=== PATIENT | female | born 1945 ===

== ENCOUNTER 2017-05-27 15:30 | Emergency (ER) | payer OTHER ==
--- NOTE | 2017-05-27 16:50 | UC ---
Neck Pain HPI - HPI Summary HPI Summary: 72 year old female presents with complains of rash om her left cheek. - History of Current Complaint Chief Complaint: UCGeneralIllness Stated Complaint: NECK COMPLAINT Time Seen by Provider: 05/27/17 16:43 Hx Obtained From: Patient Onset/Duration Of Injury/Symptoms: Hours Onset/Duration: Lasting Days Severity: Moderate Pain Scale Used: 0-10 Numeric - 8 - Allergies/Home Medications Allergies/Adverse Reactions: Allergies Allergy/AdvReac Type Severity Reaction Status Date / Time Penicillins Allergy Hives Verified 05/27/17 16:37 Pregabalin [From Lyrica] Allergy Edema Verified 05/27/17 16:37 Home Medications: Home Medications Cholecalciferol TAB* [Vitamin D TAB*] 1,000 unit PO DAILY 05/27/17 [History Confirmed 05/27/17] Cyanocobalamin TAB* [Vitamin B12 TAB*] 500 mcg PO DAILY 05/27/17 [History Confirmed 05/27/17] DULoxetine DR CAP* [Cymbalta CAP*] 20 mg PO BID 05/27/17 [History Confirmed ] Gabapentin CAP(*) [Neurontin 300 CAP(*)] 300 mg PO TID 05/27/17 [History Confirmed 05/27/17] Losartan TAB* [Cozaar TAB*] 25 mg PO DAILY 05/27/17 [History Confirmed 05/27/17] Metoprolol Tartrate TAB* [Lopressor TAB*] 25 mg PO DAILY 05/27/17 [History Confirmed 05/27/17] PMH/Surg Hx/FS Hx/Imm Hx Previously Healthy: Yes - Surgical History Surgical History: Yes Surgery Procedure, Year, and Place: gallbladder. tubal ligation. tonsillectomy - Social History Alcohol Use: Daily Substance Use Type: None Smoking Status (MU): Never Smoked Tobacco Review Of Systems Constitutional: Positive: Negative Skin: Positive: Rash ENT: Positive: Negative Respiratory: Positive: Negative Cardiovascular: Positive: Negative Gastrointestinal: Positive: Negative Musculoskeletal: Positive: Negative Neurological: Positive: Negative Psychological: Positive: Negative All Other Systems Reviewed And Are Negative: Yes Physical Exam Triage Information Reviewed: Yes Vital Signs: Initial Vital Signs Temp 36.8 C 05/27/17 16:28 Pulse 79 05/27/17 16:28 Resp 18 05/27/17 16:28 BP 149/76 05/27/17 16:28 Pulse Ox 100 05/27/17 16:28 Vital Signs Reviewed: Yes Eye Exam: Normal ENT Exam: Normal Dental Exam: Normal Neck exam: Normal Neck: Positive: 1 Respiratory Exam: Normal Cardiovascular Exam: Normal Abdominal Exam: Normal Musculoskeletal Exam: Normal Neurological Exam: Normal Psychological Exam: Normal Skin: Positive: rashes - rash on left cheek Neck Pain Course/Dx - Differential Dx/Diagnosis Provider Diagnoses: rash left cheek Discharge - Discharge Plan Condition: Stable Disposition: HOME Prescriptions: Acyclovir [Zovirax 800 MG] 800 mg PO .FID #1 tab Capsaicin 0.025% CREAM* [Zostrix 0.025% CREAM*] 1 applic TOPICAL BID #1 tu predniSONE TAB* [Deltasone TAB*] 40 mg PO DAILY #10 tab Patient Education Materials: Shingles (ED), Acute Rash (ED) Referrals: Vale Grimes [Medical Doctor] -
[2017-05-27 17:11] VITALS: BP 149/76
--- OUTSIDE RECORDS SUMMARY | 2017-05-27 17:14 | XMS REPORT | Continuity of Care Document ---
:1945 Author Organization [facility] Address [address] [place] [address] Care Team Providers Name Role Phone Unavailable Primary Care Physician Unavailable Insurance Providers Payer Name Policy Number Subscriber Name Relationship MC-PT A [id number] [employer] OTHER [id number] [employer] Advance Directives Directive Response Recorded Date/Time Advance Directive? N 05/27/17 10:28am Living Will? N 05/27/17 10:28am Health Care Proxy? N 05/27/17 10:28am Is the patient an Organ Donor? N 03/14/17 2:07pm Chief Complaint and Reason for Visit Reason for Visit ABDOMINAL PAIN,FEVER,DIARRHEA,NAUSEA Problems Active Medical Problems Problem Onset Date Recorded Date Status Urinary tract infection Unknown 03/14/17 Active Abdominal pain Unknown 03/14/17 Active Medications Current Home Medications Medication Dose Units Route Directions Days/Qty Instructions Start Date CIPROFLOXACIN HCL 500 MG ORAL EVERY 12 HOURS 10 03/14/17 (CIPRO *) 500 MG TABLET Social History Query Response Start Date Stop Date Smoking Status Former smoker Hospital Discharge Instructions No hospital discharge instructions. Plan of Care Discharge Date 03/14/17 Disposition Routine Discharge Home Condition at Discharge STABLE Instructions/Education Provided Urinary Tract Infection in Women (ED) Prescriptions See Medications Section Referrals CHIO BAKER MD - *P Gastroenterology - Reason(s) for Referral: Notes: Dr. Pietro Pulido Additional Instructions/Education You need to make an appointment to follow- up with the following health care provider or your regular doctor within 3 days. Please make your appointment to see your health care provider as soon as possible. Please return immediately if your symptoms worsen, or you cannot get a follow-up appointment. Functional Status Query Response Date Recorded Do you get in and out of a chair: Independently March 14, 2017 11:30am Do you bathe/dress: Independently March 14, 2017 11:30am Living situation: Home with family March 14, 2017 11:30am Allergies, Adverse Reactions, Alerts Allergen Type Severity Reaction Status Last Updated Penicillins Allergy Intermediate UNKNOWN Active 03/14/17 pregabalin Allergy Intermediate UNKNOWN Active 03/14/17 Immunizations No Known History of Immunizations. Vital Signs Vital Reading Collection Date/Time Result Blood Pressure 05/27/17 2:00pm 144/132 Temperature 03/14/17 3:45pm 97.5 F Temperature Source 03/14/17 3:45pm Temporal Respiratory Rate 05/27/17 2:00pm 7 Pulse Rate 05/27/17 2:00pm 80 Bedside Pulse Oximetry 05/27/17 1:44pm 98 Weight 03/14/17 11:08am 165 lb Weight 03/14/17 11:08am 74.844 kg Results Laboratory Results Test Name Result Units Flags Reference Collection Result Comments Date/Time Date/Time Glucose 93 mg/dL 74-106 04/04/17 04/04/17 Screen 1:05pm 2:42pm Blood Urea 12 mg/dL -04/04/17 04/04/17 Nitrogen 1:05pm 2:42pm Creatinine 0.8 mg/dL 0.6-1.3 04/04/17 04/04/17 1:05pm 2:42pm Estimated >60 mL/min >60 04/04/17 04/04/17 GFR 1:05pm 2:42pm (Non- Estimated >60 mL/min >60 04/04/17 04/04/17 Note: GFR ( 1:05pm 2:42pm Persistent reduction for 3 months or more in an eGFR <60 [place]) mL/min/1.73 m2 defines CKD. Patients with eGFR values & gt;/=60 mL/min/1.73 m2 may also have CKD if evidence of persistent proteinuria is present. The original MDRD equation for estimated GFR is not valid for patients less than 18 years of age. Additional information may be found at www.kdoqi.org. BUN/Creatini 15.0 ratio 04/04/17 04/04/17 ne Ratio 1:05pm 2:42pm Sodium Level 143 mmol/L 136-145 04/04/17 04/04/17 1:05pm 2:42pm Potassium 3.8 mmol/L 3.5-5.1 04/04/17 04/04/17 Level 1:05pm 2:42pm Chloride 107 mmol/L 98-107 04/04/17 04/04/17 Level 1:05pm 2:42pm Carbon 28 mmol/L 21-32 04/04/17 04/04/17 Dioxide 1:05pm 2:42pm Level Anion Gap 8 mEq/L 8-16 04/04/17 04/04/17 1:05pm 2:42pm Calcium 8.7 mg/dL 8.5-10.1 04/04/17 04/04/17 Level 1:05pm 2:42pm Total 6.6 g/dL 6.4-8.2 04/04/17 04/04/17 Protein 1:05pm 2:42pm Albumin 3.3 g/dL L 3.4-5.0 04/04/17 04/04/17 1:05pm 2:42pm Globulin 3.3 g/dL 1.9-4.3 04/04/17 04/04/17 1:05pm 2:42pm Albumin/Glob 1.0 ratio 04/04/17 04/04/17 ulin Ratio 1:05pm 2:42pm Total 0.3 mg/dL 0.2-1.0 04/04/17 04/04/17 Bilirubin 1:05pm 2:42pm Aspartate 19 U/L 15-37 04/04/17 04/04/17 Amino Transf 1:05pm 2:42pm (AST/SGOT) Alanine 37 U/L 12-78 04/04/17 04/04/17 Aminotransfe 1:05pm 2:42pm rase (ALT/SGPT) Alkaline 105 U/L 45-117 04/04/17 04/04/17 Phosphatase 1:05pm 2:42pm Urine Color YELLOW YELLOW 04/03/17 04/04/17 2:07pm 1:32pm Urine CLEAR CLEAR 04/03/17 04/04/17 Clarity 2:07pm 1:32pm Urine NEGATIVE mg/dL NEGATIVE 04/03/17 04/04/17 Glucose (UA) 2:07pm 1:32pm Urine NEGATIVE NEGATIVE 04/03/17 04/04/17 Bilirubin 2:07pm 1:32pm Urine NEGATIVE mg/dL NEGATIVE 04/03/17 04/04/17 Ketones 2:07pm 1:32pm Urine 1.010 1.010-1.03 04/03/17 04/04/17 Specific 0 2:07pm 1:32pm [place] Urine Blood NEGATIVE NEGATIVE 04/03/17 04/04/17 2:07pm 1:32pm Urine pH 5.0 L 6.5-7.5 04/03/17 04/04/17 2:07pm 1:32pm Urine NEGATIVE mg/dL NEGATIVE 04/03/17 04/04/17 Protein 2:07pm 1:32pm Urine 0.2 E.U./d 0.2-1.0 04/03/17 04/04/17 Urobilinogen L 2:07pm 1:32pm Urine NEGATIVE NEGATIVE 04/03/17 04/04/17 Nitrite 2:07pm 1:32pm Urine NEGATIVE NEGATIVE 04/03/17 04/04/17 Leukocyte 2:07pm 1:32pm Esterase Stool 171 ug/g H 0-120 03/20/17 03/28/17 Concentration Interpretation Follow-Up Calprotectin 7:30pm 2:58pm <16 - 50 ug/g Normal None >50 -120 ug/g Borderline Re-evaluate in 4-6 weeks >120 ug/g Abnormal Repeat as clinically indicated Stool 41.70 ug/mL( H 0.00-7.24 03/20/17 03/28/17 Results verified by repeat testing Lactoferrin g) 7:30pm 2:58pm Baseline (normal ) 0.00 - 7.24 (LAB) Elevated >7.24 An elevated result is indicative of the presence of fecal lactoferrin, a marker of intestinal inflammation. A normal result does not exclude the presence of intestinal inflammation. The test can be used as an in vitro diagnostic aid to distinguish patients with active inflammatory bowel disease (IBD) from those with non-inflammatory irritable bowel syndrome (IBS). Performed at: [address] [id number] Anchorman: Poli Bradford MD, Phone: [phone] Immunoglobul 196 mg/dL 87-352 03/19/17 03/26/17 in A 4:23pm 6:11pm Saccharomyce 13 units 0-50 03/19/17 03/26/17 Negative <45 s cerevisiae 4:23pm 6:11pm Equivocal 45 - 50 (Tanja)IgG Positive >50 Chitobioside 29 units 0-90 03/19/17 03/26/17 Negative <80 Carbohydrat 4:23pm 6:11pm Equivocal 80 - 90 (ACCA) IgA Positive >90 Laminaribios 11 units 0-60 03/19/17 03/26/17 Negative <55 la Carbohyd 4:23pm 6:11pm Equivocal 55 - 60 (ALCA) IgG Positive >60 Mannobioside 27 units 0-100 03/19/17 03/26/17 Negative < 90 Carbohydrat 4:23pm 6:11pm Equivocal 90 - 100 (AMCA) IgG Positive > 100 This test was developed and its performance characteristics determined by [facility]. It has not been cleared or approved by the Food and Drug Administration. The FDA has determined that such clearance or approval is not necessary. Atypical Negative Negative 03/19/17 03/26/17 p-ANCA 4:23pm 6:11pm IBD Test Pattern is not 03/19/17 03/26/17 Information suggestive of 4:23pm 6:11pm Inflammatory Bowel Disease Anti-Gliadin 2 units 0-19 03/19/17 03/26/17 Negative 0 - 19 IgG Ab 4:23pm 6:11pm Weak Positive 20 - 30 Deaminated Moderate to Strong Positive >30 Anti-Gliadin 4 units 0-19 03/19/17 03/26/17 Negative 0 - 19 IgA Ab 4:23pm 6:11pm Weak Positive 20 - 30 Deaminated Moderate to Strong Positive >30 Endomysial Negative Negative 03/19/17 03/26/17 IgA Antibody 4:23pm 6:11pm Titer Tissue <2 U/mL 0-3 03/19/17 03/26/17 Negative 0 - 3 Transglutami 4:23pm 6:11pm Weak Positive 4 - 10 nase IgA Ab Positive > 10 Tissue Transglutaminase (tTG) has been identified as the endomysial antigen. Studies have demonstr- ated that endomysial IgA antibodies have over 99% specificity for gluten sensitive enteropathy. Tissue <2 U/mL 0-5 03/19/17 03/26/17 Negative 0 - 5 Transglutami 4:23pm 6:11pm Weak Positive 6 - 9 nase IgG Ab Positive >9 Hepatitis B Negative Negative 03/19/17 03/21/17 Surface 4:23pm 1:23pm Antigen Hepatitis B Non Reactive . 03/19/17 03/21/17 Non Reactive: Inconsistent with immunity, Surface 4:23pm 1:23pm less than 10 mIU/ mL Antibody Reactive: Consistent with immunity, greater than 9.9 mIU/mL Hepatitis B Negative Negative 03/19/17 03/21/17 Performed at: RN - [facility] [place] Core IgM 4:23pm 1:23pm [address] [place] [id number] Antibody Anchorman: Stacie Lewis MD, Phone: [phone] Hepatitis B Negative Negative 03/19/17 03/26/17 Core Total 4:23pm 6:11pm Antibody Varicella-Zo 878 index Immune 03/19/17 03/26/17 Negative <135 ster IgG >165 4:23pm 6:11pm Equivocal 135 - 165 Antibody Positive >165 A positive result generally indicates exposure to the pathogen or administration of specific immunoglobulins, but it is not indication of active infection or stage of disease. TPMT Enzyme 29.2 Unit/m . 03/19/17 03/26/17 INFCE Result Units: Units/ mL RBC Activity, lR 4:23pm 6:11pm Reference Range: Quantitative Normal: 15.1 - 26.4 Heterozygous for low TPMT variant: 6.3 - 15.0 Homozygous for low TPMT variant: <6.3 TPMT The above results can be interpreted as Normal for red 03/19/17 03/26/17 Interpretati blood cell Thiopurine Methyltransferase activity. For 4: 23pm 6:11pm on patients having an intrinsic low level of TPMT, recent RBC transfusion can variably increase their assayed enzymatic activity depending on the amount and circulating half-life of the transfused red blood cells. This test was developed and its performance characteristics determined by [facility]. It has not been cleared or approved by the Food and Drug Administration. This case has been reviewed, approved, interpreted and electronically signed by Len Lo, PhD. TPMT Method Enzymatic Endpoint/Liquid Chromatography - Tandem Mass 04/2503/26/17 Spectrometry (LC-MS/MS) 4:23pm 6:11pm Performed at: [address] [id number] Anchorman: Stacie Lewis MD, Phone: [phone] Performed at: [address] [id number] Anchorman: Poli Bradford MD, Phone: [phone] Performed at: [facility] [address] [place] [id number] Anchorman: Calixto Copeland MD, Phone: [phone] Erythrocyte 37 mm/hr H 0-30 03/19/17 03/19/17 Method: Sedimentatio 4:22pm 5:06pm Sediplast n Rate Modified Westergren Vitamin D 31.4 ng/mL 30.0-100.0 03/19/17 03/21/17 Vitamin D deficiency has been defined by the [place] of 25-Hydroxy 4:22pm 1:29pm Medicine and an Endocrine Society practice guideline as a level of serum 25-OH vitamin D less than 20 ng/mL (1,2). The Endocrine Society went on to further define vitamin D insufficiency as a level between 21 and 29 ng/mL (2). 1. IOM ([place] of Medicine). 2010. Dietary reference intakes for calcium and D. [place]: The National Academies Press. 2. Kwadwo MF, Christine NC, Hayley ALVAREZ, et al. Evaluation, treatment, and prevention of vitamin D deficiency: an Endocrine Society clinical practice guideline. JCEM. 2010; 96(7):1911-30. Performed at: [address] [id number] Anchorman: Stacie Lewis MD, Phone: [phone] C-Reactive 15.5 mg/L H <3.0 03/19/17 03/19/17 Protein, 4:22pm 4:52pm Quantitative TB Test Negative Negative 03/19/17 03/24/17 The specimen received for QuantiFERON testing was incubated (QFT) 4:22pm 2:40pm by the ordering institution. Specific procedures outlined in our Directory of Services and in the package insert for the QuantiFERON Gold (In Tube) test must be followed to enable for proper stimulation of cells for the production of interferon gamma. TB Test To be considered positive a specimen should have a TB Ag 03/24/17 (QFT) minus Nil value greater than or equal to 0.35 IU/mL and in 4: 22pm 2:40pm Positive addition the TB Ag minus Nil value must be greater than or Criteria equal to 25% of the Nil value. There may be insufficient information in these values to differentiate between some negative and some indeterminate test values. TB Test 0.10 IU/mL . 03/19/17 03/24/17 (QFT) 4:22pm 2:40pm Antigen TB Test 0.06 IU/mL . 03/19/17 03/24/17 (QFT) Nil 4:22pm 2:40pm TB Test > 10.00 IU/mL . 03/19/17 03/24/17 (QFT) 4:22pm 2:40pm Mitogen TB Test 0.04 IU/mL . 03/19/17 03/24/17 (QFT) 4:22pm 2:40pm Antigen Minus Nil TB Test The QuantiFERON TB Gold (in Tube) assay is intended for use 04/2503/24/17 (QFT) as an aid in the diagnosis of TB infection. Negative 4:22pm 2: 40pm Interpretati results suggest that there is no TB infection. In patients on with high suspicion of exposure, a negative test should be repeated. A positive test indicates infection with Mycobacterium tuberculosis. Among individuals without tuberculosis infection, a positive test may be due to exposure to M. kansasii, M. szulgai or M. marinum. On the Internet, go to cdc.gov/tb for further details. Performed at: - [facility] [id number] Anchorman: Stacie Lewis MD, Phone: [phone] Lactic Acid 0.8 mMol/L 0.4-1.9 03/14/17 03/14/17 Level 1:51pm 2:37pm White Blood 10.0 K/uL 3.1-10.7 03/14/17 03/14/17 Count 12:22pm 12:31pm Red Blood 4.25 M/uL 3.90-5.40 03/14/17 03/14/17 Count 12:22pm 12:31pm Hemoglobin 13.6 gm/dL 11.6-15.8 03/14/17 03/14/17 12:22pm 12:31pm Hematocrit 39.2 % 36.0-46.1 03/14/17 03/14/17 12:22pm 12:31pm Mean 92.2 fl 80.9-99.0 03/14/17 03/14/17 Corpuscular 12:22pm 12:31pm Volume Mean 32.0 pg 25.9-32.7 03/14/17 03/14/17 Corpuscular 12:22pm 12:31pm Hemoglobin Mean 34.7 g/dL H 30.8-34.3 03/14/17 03/14/17 Corpuscular 12:22pm 12:31pm Hemoglobin Concent Platelet 335 K/uL 150-400 03/14/17 03/14/17 Count 12:22pm 12:31pm Red Cell 41.0 fl 3-47 03/14/17 03/14/17 Distribution 12:22pm 12:31pm Width RDW 12.5 % 11.7-14.4 03/14/17 03/14/17 Coefficient 12:22pm 12:31pm of Variation Mean 10.9 fL 8.9-12.4 03/14/17 03/14/17 Platelet 12:22pm 12:31pm Volume Neutrophils 46.9 % 40.4-72.8 03/14/17 03/14/17 (%) (Auto) 12:22pm 12:31pm Lymphocytes 33.4 % 20.0-42.0 03/14/17 03/14/17 (%) (Auto) 12:22pm 12:31pm Monocytes 11.1 % 4.3-13.2 03/14/17 03/14/17 (%) (Auto) 12:22pm 12:31pm Eosinophils 7.9 % H 0.0-6.6 03/14/17 03/14/17 (%) (Auto) 12:22pm 12:31pm Basophils 0.7 % 0.0-1.1 03/14/17 03/14/17 (%) (Auto) 12:22pm 12:31pm Neutrophils 4.67 K/uL 1.8-7.0 03/14/17 03/14/17 # (Auto) 12:22pm 12:31pm Lymphocytes 3.33 K/uL 1.0-4.0 03/14/17 03/14/17 # (Auto) 12:22pm 12:31pm Monocytes # 1.11 K/uL H 0.3-0.9 03/14/17 03/14/17 (Auto) 12:22pm 12:31pm Eosinophils 0.79 K/uL H 0.0-0.5 03/14/17 03/14/17 # (Auto) 12:22pm 12:31pm Basophils # 0.07 K/uL 0.0-0.1 03/14/17 03/14/17 (Auto) 12:22pm 12:31pm Urine RBC NONE SEEN rbc/hp 0-2 03/14/17 03/14/17 f 12:22pm 12:42pm Urine WBC 20-30 wbc/hp H 0-7 03/14/17 03/14/17 f 12:22pm 12:42pm Urine FEW /lpf NONE SEEN 03/14/17 03/14/17 Epithelial 12:22pm 12:42pm Cells Urine MODERATE H NONE SEEN 03/14/17 03/14/17 Bacteria 12:22pm 12:42pm Lipase 250 U/L 56-289 03/14/17 03/14/17 12:22pm 12:58pm Microbiology Results Procedure Source Result Collection Result Date/Time Date/Time Stool Culture Stool No Enteric Pathogens 03/20/17 7:30pm 03/23/17 3:10pm Isolated Cryptosporidium Stool NEGATIVE FOR 03/20/17 7:30pm 03/21/17 3:06pm Antigen CRYPTOSPORIDIUM SPECIFIC ANTIGEN Giardia Antigen (JOSE JUAN) Stool NEGATIVE FOR GIARDIA 03/20/17 7:30pm 03/22/17 3 :25pm SPECIFIC ANTIGEN. Aerobic Blood Culture Blood, NO GROWTH: FINAL 03/14/17 1:53pm 03/15/17 1: 59pm Venous REPORT Anaerobic Blood Blood, NO GROWTH: FINAL 03/14/17 1:53pm 03/15/17 1:59pm Culture Venous REPORT Urine Culture Urine,Clean Escherichia Coli 03/14/17 12:22pm 03/15/17 Catch 11:34pm Procedures Procedure Status Date Provider(s) LUMBAR SPINE COMPLETE Active 02/27/17 ELAINE JOSHI AP, LAT KNEE WITH [place] Active 02/27/17 ELAINE JOSHI KNEE LIMITED - 1-2 VIEWS Active 02/27/17 ELAINE JOSHI ANKLE COMPLETE - 4 VIEWS Active 03/04/17 ELAINE JOSHI FOOT COMPLETE 4 VIEWS Active 03/04/[address] ABDO & PELV W/O IV CONTRAST Completed 03/14/17 JOSE HUSAIN NP MRI PELVIS W/O CONTRAST Completed 04/29/17 JERRICA HERRERA MD Encounters Encounter Location Arrival/Admit Date Discharge/Depart Date Attending Provider Departed [place] 05/27/17 9:57am 05/27/17 2:18pm NEAL PULIDO MD Surgical Day [facility] Registered [place] 04/29/17 12:34pm JAVIER [facility] Registered [place] 04/04/17 8:02pm JAVIER [facility] Registered [place] 04/04/17 12:55pm SAMUEL [facility] CHIO [facility] Registered [place] 03/21/17 7:30pm NEAL PULIDO MD Referral [facility] Registered [place] 03/19/17 3:58pm NEAL PULIDO MD Referral [facility] Departed [place] 03/14/17 10:34am 03/14/17 3:47pm DARLYN ANGELA [facility] Registered [place] 03/04/17 3:09pm Roxie JOSHI Referral [facility] Registered [place] 02/27/17 1:47pm Roxie JOSHI Referral [facility]
--- OUTSIDE RECORDS SUMMARY | 2017-05-27 17:15 | XMS REPORT ---
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 Payers Type Date Identification Numbers Payment Provider Subscriber Medicare Primary Policy Number: [id number] Medicare Arsen Leary Group Name: Federal [address] PayID: [id number] [place] [address] [employer] Part B Policy Number: [id number] [employer] / [employer] Arsen Leary PayID: [id number] [address] [place] [phone] Problems Date Description Provider Status Onset: 08/09/2015 Benign essential hypertension Radha Whalen MD Active Onset: 08/09/2015 Peptic reflux disease Radha Whalen MD Active Onset: 08/09/2015 Crohn's disease of large bowel Radha Whalen MD Active Onset: 08/09/2015 Gastroesophageal reflux disease Radha Whalen MD Active Onset: 08/09/2015 Degeneration of lumbar intervertebral Radha Whalen MD Active disc Onset: 08/09/2015 Vitamin B deficiency Radha Whalen MD Active Onset: 08/09/2015 Vitamin D deficiency Radha Whalen MD Active Onset: 08/09/2015 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 Onset: 09/07/2015 Allergic rhinitis Radha Whalen MD Active Onset: 09/07/2015 Migraine without aura, not refractory Radha Whalen MD Active Family History Date Family Member(s) Problem(s) Comments : (age 78 Father due to Stroke Years) Father Hypertension Father Diabetes, Adult Father Gout : (age 86 Mother due to Cancer, Years) Pancreatic First Son No Current Problems Second Son No Current Problems First Daughter degenerative disc disease First Brother ileus First Sister Arthritis knee and hip replacement Onset: (age 73 First Sister TIA Years) Second Sister Arthritis back Social History Type Date Description Comments Marital Status 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 not eligible for lung ca screening Recreational Drug Use Never Used Drugs Exercise Type/Frequency Exercises regularly walking, house chores; 08/09/2015 counselled 150min per week, 10k steps per day LC; 03/11/17 counselled Allergies, Adverse Reactions, Alerts Date Description Reaction Status Severity Comments 08/09/2015 Penicillin active Hives 05/13/2016 Lyrica active Terrible edema Medications Medication Date Status Form Strength Qnty SIG Indications Ordering Provider Duloxetine HCL 01/28/[address] 20mg 90caps 1 By M51.36 Koby, 17 Part Mouth MD Radha Every Day M51.06 Benzonatate 06/12/2016 Active Capsules 200mg 30caps 1 by J06.9 Koby mouth MD Radha every 8 hours as needed Omeprazole 05/13/[address] 40mg 60caps take 1 K21.9 Koby, capsule MD Radha twice daily 30 minutes before a meal Losartan 10/10/2015 Active Tablets 50mg 30tabs 1 by I10 Koby Potassium mouth MD Radha daily in the morning Fluticasone 09/26/2015 Active Suspension 50mcg/A 48units use one H92.[address] to two MD Radha spray(s) in each nostril daily J30.9 Allopurinol 09/07/2015 Active Tablets 100mg 90tabs 1 By Mouth M10.9 Koby, Daily MD Radha Gabapentin 09/01/2015 Active Capsules 300mg 90caps 1 by mouth M51.36 Koby, three MD Radha times a day M51.06 Colchicine 08/14/2015 Active Tablets 0.6mg 90tabs 1 by mouth M10.9 Koby now and MD Radha repeat in 6 hours then 1 by mouth daily as needed Vitamin D3 08/09/2015 Active Chewtabs 1000Un 90units 1 by mouth E55.9 Koby, it every day MD Radha with meal with meat/fat/o il with dinner Metoprolol 08/09/2015 Active Tablets 25mg 180tabs 1 By Mouth I10 Koby, Tartrate Twice A MD Radha Day Preservision 08/07/2015 Active Capsules Areds 1 by mouth Koby, Areds 2 2 twice a MD Radha day Potassium 08/07/2015 Active Tablets ER 595mg 30tabs 1 by mouth I10 Koby, Gluconate ER every day MD Radha Vitamin B-12 09/19/2014 Active Tablets 1000mc 90tabs 1 po daily E53.9 Koby, g with MD Radha protein Topiramate 02/12/2014 Active Tablets 25mg 120tabs 1 to 4 by G43.00 Koby mouth 9 MD Radha every night at bedtime as needed severe migraines Aspirin 81 Low Active Chewtabs 81mg 1 by mouth Unknown Dose every day Ciprofloxacin 03/14/2017 - Hx Tablets 500mg 10tabs Every 12 Unknown HCL 04/01/2017 Hours Diclofenac 03/03/2017 - Hx Tablets DR 75mg 1 by mouth M25.56 [place], Wesley Sodium 05/18/[address] day after meals as needed Doxycycline 11/18/2016 - Hx Tablets 100mg 20tabs 1 by mouth L04.0 Koby Hyclate 03/10/2017 twice a MD Radha day 1 hour before a meal Duloxetine HCL 08/14/2016 - Hx Caps DR 20mg 90caps 1 po daily M51.36 Koby, 01/20/2017 Part MD Radha M51.06 Ciprofloxacin HCL 11/22/2015 - Hx Tablets 250mg 14tabs 1 by N30.01 Koby, 11/29/2015 mouth MD Radha twice a day Duloxetine HCL 09/07/2015 - Hx Caps DR 30mg 90caps 1 by M51.36 Koby, 08/14/2016 Part mouth MD Radha daily M51.06 Nasonex 09/07/2015 - Hx Suspension 50mcg/Act 17gm 1-2 H92.02 Koby , 09/26/2015 sprays MD Radha each nostril every day for ear pain, take for 1 mo Vitamin D3 08/14/2015 - Hx Capsules 1000Unit 2 by E55.9 Koby, 03/11/2017 yoel Garcia MD every day with dinner with meat fat oil Syringe/Luer 08/09/2015 - Hx Misc 27G X /2" use E53.9 Koby, Slip/1ML/27G 08/16/2015 1 ML monthly MD Radha X 06/10" to inject vit b 12 Gabapentin 08/09/2015 - Hx Capsules 100mg 90caps 1 by M51.36 Koby , 09/01/2015 mouth at MD Radha bedtime 3 days, 2 by mouth at bedtime for 3days, 3 by mouth at bedtime, let me know Duloxetine 08/07/2015 - Hx Caps DR Jimena 20mg 90caps 1 by M51.36 Koby, HCL 09/07/2015 yoel Gacria MD every day Montelukast 08/07/2015 - Hx Tablets 10mg 90tabs 1 by J30.9 Koby Sodium 08/14/2016 yoel Garcia MD each night Losartan 08/07/2015 - Hx Tablets 25mg 30tabs 1 by I10 Koby, Potassium 10/10/2015 yoel Garcia MD every day in the morning Omeprazole 08/07/2015 - Hx Capsules DR 20mg 180cap 1 by K21.9 Koby, 05/13/2016 s yoel Garcia MD twice daily, 30min before a meal Naproxen 08/07/2015 - Hx Capsules 220mg 60caps 1-2 by Magdiel Whalen Sodium 03/10/2017 yoel Garcia MD twice daily with food, watch for stomach upset. M51.06 Metoprolol 08/07/2015 - Hx 25mg 30units 1 by mouth Koby, 08/09/2015 twice a MD Radha day Magnesium Oxide - Hx Tablets 250mg 1 by mouth E5 Unknown 04/01/2017 every 5. morning 9 Dexamethasone - Hx Tablets 4mg 1 by mouth Balaji Méndez M 08/14/2016 once a day D x 5 days Depo Medrol 40 Active Injection MG Radha Whalen MD Medications Administered in Office Medication Date Status Form Strength Qnty SIG Indications Ordering Provider PPD Administered Injection Schedule, 017 Nurses Depo Medrol 20 Administered Injection MG Koby 016 MD JETHRO Garcia Administered Injection Zoie Whalen MD Immunizations CPT Code Status Date Vaccine Reaction Lot # [id number] Given 03/11/2017 Pneumococcal 23 Immunization [id number] Adult Or Immunosuppressed Patient 03524 Given 02/14/2016 Prevnar 13 Pneumococal Im inj completed, Pt [id number] Conjugate Vaccine tolerated well 31816 Given 03/09/2015 Influenza Virus Vaccine,Quadrivalent,Split,Pr eserv Free 3 Yrs+ [id number] Refused 08/14/2016 Zoster (Zostavax) 04014 Refused 08/14/2016 Tdap (Adacel) Ages 7 And Above Only 25296 Refused 08/14/2016 Influenza Virus Vaccine,Quadrivalent,Split,Preserv Free 3 Yrs+ Vital Signs Date Vital Result Comment 05/19/2017 Body Temperature 97.8 F Weight 194.00 lb Heart Rate 86 /min BP Systolic 126 mmHg BP Diastolic 70 mmHg Respiratory Rate 16 /min Height 64.5 inches 5'4.50" O2 % BldC Oximetry 96 % BMI (Body Mass Index) 32.8 kg/m2 04/02/2017 Body Temperature 98.7 F Weight 200.00 lb Heart Rate 75 /min BP Systolic 132 mmHg BP Diastolic 76 mmHg Respiratory Rate 16 /min Height 64.5 inches 5'4.50" O2 % BldC Oximetry 96 % BMI (Body Mass Index) 33.8 kg/m2 03/18/2017 Body Temperature 98.2 F Weight 195.00 lb Heart Rate 76 /min BP Systolic 130 mmHg BP Diastolic 80 mmHg Respiratory Rate 18 /min Height 64.5 inches 5'4.50" BMI (Body Mass Index) 33.0 kg/m2 03/11/2017 Body Temperature 98.5 F Weight 195.00 lb Heart Rate 87 /min BP Systolic 144 mmHg BP Diastolic 78 mmHg Respiratory Rate 16 /min Height 64.5 inches 5'4.50" O2 % BldC Oximetry 97 % BMI (Body Mass Index) 33.0 kg/m2 11/18/2016 Body Temperature 98.4 F Weight 192.50 lb Heart Rate 76 /min BP Systolic 128 mmHg BP Diastolic 78 mmHg Respiratory Rate 16 /min Height 64.5 inches 5'4.50" BMI (Body Mass Index) 32.5 kg/m2 08/14/2016 Weight 195.00 lb Heart Rate 76 /min BP Systolic 130 mmHg BP Diastolic 84 mmHg Respiratory Rate 16 /min Height 64.5 inches 5'4.50" BMI (Body Mass Index) 33.0 kg/m2 06/12/2016 Body Temperature 98.0 F Weight 200.31 lb Heart Rate 80 /min BP Systolic 146 mmHg BP Diastolic 80 mmHg Respiratory Rate 16 /min Height 64.5 inches 5'4.50" O2 % BldC Oximetry 94 % On room air BMI (Body Mass Index) 33.8 kg/m2 05/13/2016 Body Temperature 97.9 F Weight 201.00 lb Heart Rate 76 /min BP Systolic 128 mmHg BP Diastolic 86 mmHg Respiratory Rate 14 /min Height 64.5 inches 5'4.50" O2 % BldC Oximetry 96 % On room air BMI (Body Mass Index) 34.0 kg/m2 04/19/2016 Body Temperature 98.6 F Weight 201.00 lb Heart Rate 72 /min BP Systolic 142 mmHg BP Diastolic 80 mmHg Respiratory Rate 18 /min Height 64.5 inches 5'4.50" BMI (Body Mass Index) 34.0 kg/m2 02/14/2016 Weight 197.50 lb Heart Rate 76 /min BP Systolic 134 mmHg BP Diastolic 86 mmHg Respiratory Rate 12 /min Height 64 inches 5'4" 02/14/16 BMI (Body Mass Index) 33.9 kg/m2 11/22/2015 Body Temperature 99.0 F Weight 193.00 lb Heart Rate 66 /min BP Systolic 122 mmHg BP Diastolic 82 mmHg Respiratory Rate 18 /min Height 64.50 inches 5'4.50" BMI (Body Mass Index) 32.6 kg/m2 11/13/2015 Weight 198.00 lb Heart Rate 72 /min BP Systolic 134 mmHg L/Reg BP Diastolic 84 mmHg L/Reg Respiratory Rate 18 /min Height 64.50 inches 5'4.50" BMI (Body Mass Index) 33.5 kg/m2 10/11/2015 Weight 190.00 lb Heart Rate 70 /min BP Systolic 148 mmHg RIGHT Reg BP Diastolic 82 mmHg RIGHT Reg Respiratory Rate 18 /min Height 64.50 inches 5'4.50" BMI (Body Mass Index) 32.1 kg/m2 10/10/2015 Weight 190.00 lb Heart Rate 70 /min BP Systolic 148 mmHg RIGHT Reg BP Diastolic 94 mmHg RIGHT Reg BP Systolic Recheck 146 mmHg LEFT reg BP Diastolic Recheck 80 mmHg LEFT reg Respiratory Rate 18 /min Height 64.50 inches 5'4.50" BMI (Body Mass Index) 32.1 kg/m2 09/18/2015 Weight 192.00 lb Heart Rate 78 /min BP Systolic 148 mmHg L/Reg BP Diastolic 86 mmHg L/Reg Respiratory Rate 19 /min Height 64.50 inches 5'4.50" BMI (Body Mass Index) 32.4 kg/m2 09/07/2015 Weight 190.00 lb Heart Rate 76 /min BP Systolic 164 mmHg LEFT Reg BP Diastolic 92 mmHg LEFT Reg Height 64.50 inches 5'4.50" BMI (Body Mass Index) 32.1 kg/m2 08/14/2015 Weight 188.00 lb Heart Rate 74 /min BP Systolic 134 mmHg L/Reg BP Diastolic 88 mmHg L/Reg Respiratory Rate 19 /min Height 64.50 inches BMI (Body Mass Index) 31.8 kg/m2 08/09/2015 Weight 189.00 lb Heart Rate 80 /min BP Systolic 144 mmHg LEFT reg, recheck high BP Diastolic 92 mmHg LEFT reg, recheck high BP Systolic Recheck 150 mmHg BP Diastolic Recheck 96 mmHg Respiratory Rate 18 /min Height 64.50 inches 5'4.50" 08/09/15 BMI (Body Mass Index) 31.9 kg/m2 Results Test Date Test Result H/L Range Note Comprehensive Metabolic Panel 04/04/2017 Glucose 93 mg/dL 74-106 BUN 12 mg/dL 7-18 Creatinine 0.8 mg/dL 0.6-1.3 Glom Filtration Rate, Estimate >60 mL/min >60 If >60 mL/min >60 1 BUN/Creat 15.0 ratio Sodium 143 mmol/L 136-145 Potassium 3.8 mmol/L 3.5-5.1 Chloride 107 mmol/L 98-107 Carbon Dioxide 28 mmol/L 21-32 Anion Gap 8 mEq/L 8-16 Calcium 8.7 mg/dL 8.5-10.1 Total Protein 6.6 g/dL 6.4-8.2 Albumin 3.3 g/dL Low 3.4-5.0 Globulin 3.3 g/dL 1.9-4.3 Alb/Glob 1.0 ratio Bilirubin,Total 0.3 mg/dL 0.2-1.0 Sgot/Ast 19 U/L 15-37 SGPT/Alt 37 U/L 12-78 Alkaline Phosphatase 105 U/L 45-117 Ua RFX Micro & Culture II 04/03/2017 Urine Color YELLOW Yellow 2 Urine Clarity CLEAR Clear 2 Urine Glucose - Dipstick NEGATIVE mg/dL Negative 2 Urine Bilirubin - Dipstick NEGATIVE Negative 2 Urine Ketone NEGATIVE mg/dL Negative 2 Urine Specific Stebbins 1.010 1.010-1.030 2 Urine Blood NEGATIVE Negative 2 Urine PH 5.0 Low 6.5-7.5 2 Urine Protein - Dipstick NEGATIVE mg/dL Negative 2 Urine Urobilinogen - Dipstick 0.2 E.U./dL 0.2-1.0 2 Urine Nitrite - Dipstick NEGATIVE Negative 2 Urine Leuk Esterase NEGATIVE Negative 2 Source: URINE, CLEAN CAT <SEE NOTE> 2, 3 C. Difficile Toxin B 03/20/2017 C. Difficile Toxin B C-DIFF TOXIN B: 4 , 5 By PCR By PCR <SEE NOTE> Stool Panel 03/19/2017 Enteric Pathogens By SEE NOTE 6, 7 PCR Giard/Cryptosp Exam SEE NOTE 6, 8 Lactoferrin,Fecal POSITIVE (Neg) 6, 9 C Diff Toxin B/PCR-RL 03/19/2017 Specimen Description STOOL 6 C Diff Toxin B NEGATIVE (Neg) 6 027 Nap1 B1 NEGATIVE (Neg) 6 Comment NOTE: IF REFLEX <SEE NOTE> 6, 10 CBC With Auto Diff 03/18/2017 WBC 14.1 K/uL High 4.1-11.0 11 RBC 4.15 M/uL 4.00-5.40 11 Hemoglobin 13.0 gm/dL 12.0-16.0 11 Hematocrit 39.2 % 36.0-47.0 11 MCV 94.5 fL 80.0-97.0 11 MCH 31.3 pg 27.0-32.0 11 MCHC 33.2 g/dL 32.0-36.0 11 RDW 12.6 % 11.5-14.5 11 PLT Count 376 K/ul 140-400 11 MPV 9.4 FL 7.1-10.7 11 Neutrophil 58.7 % 35.0-75.0 11 Lymphocyte 26.0 % 16.0-52.0 11 Monocyte 10.0 % 2.0-10.0 11 Eosinophil 4.5 % 0.0-5.0 11 Basophil 0.8 % 0.0-4.0 11 Abs Neutrophils 8.3 K/uL High 2.1-8.0 11 Abs Lymphocytes 3.7 K/uL 0.8-5.5 11 Abs Monocytes 1.4 K/uL High 0.1-1.0 11 Abs Eosinophils 0.6 K/uL High 0.0-0.5 11 Abs Basophils 0.1 K/uL 0.0-0.3 11 Comprehensive Met Panel-[facility] 03/18/2017 Sodium 140 mmol/L 135-146 11, 12 Potassium 3.6 mmol/L 3.5-5.2 11 Chloride# 109 mmol/L 97-110 11, 13 Carbon Dioxide 19 mmol/L Low 24-34 11 Glucose 99 mg/dL 70-105 11 Creatinine 1.4 mg/dL 0.5-1.4 11 Calcium 9.5 mg/dL 8.5-10.2 11 Total Protein 6.2 g/dL 6.0-8.0 11 Albumin 3.8 g/dL 3.6-4.9 11 Globulin 2.4 g/dL 2.0-3.5 11 A/G Ratio 1.6 Ratio 1.0-2.2 11 Total Bilirubin 0.2 mg/dL 0.1-1.3 11 Alkaline Phosphatase 84 U/L 24-140 11 Alt 14 U/L 3-42 11 Ast 10 U/L 8-42 11 Winter Egfr 45 Low >60 11, 14 Non Winter Egfr 37 Low >60 11, 15 Anion Gap 12 mmol/L 7-16 11, 16 BUN 25 mg/dL 6-26 11 Ast-GN67 03/14/2017 Nitrofurantoin <=16 17 Trimethoprim/Sulfamethoxazole <=20 17 Ampicillin <=2 17 Cefazolin <=4 17 Ampicillin/Sulbactam <=2 17 Ciprofloxacin <=0.25 17 Piperacillin/Tazobactam <=4 17 Ceftazidime <=1 17 Ceftriaxone <=1 17 Cefepime <=1 17 Levofloxacin <=0.12 17 Imipenem <=0.25 17 Gentamicin <=1 17 Tobramycin <=1 17 Urine Culture 03/14/2017 Urine Culture ESCHERICHIA COLI 17, 18 Quantity > 100,000 CFU/mL 17, 19 Laboratory test finding 03/14/2017 Lipase 250 U/L 56-289 17 HCG,Serum (Qualitative) NEGATIVE (Negative) 17, 20 Comprehensive Metabolic Panel 03/14/2017 Glucose 115 mg/dL High 74-106 17 BUN 31 mg/dL High 7-18 17 Creatinine 1.8 mg/dL High 0.6-1.3 17 Glom Filtration Rate, Estimate 30 mL/min >60 17 If 36 mL/min >60 17, 21 BUN/Creat 17.2 ratio 17 Sodium 139 mmol/L 136-145 17 Potassium 3.7 mmol/L 3.5-5.1 17 Chloride 107 mmol/L 98-107 17 Carbon Dioxide 22 mmol/L 21-32 17 Anion Gap 10 mEq/L 8-16 17 Calcium 9.4 mg/dL 8.5-10.1 17 Total Protein 7.0 g/dL 6.4-8.2 17 Albumin 3.5 g/dL 3.4-5.0 17 Globulin 3.5 g/dL 1.9-4.3 17 Alb/Glob 1.0 ratio 17 Bilirubin,Total 0.4 mg/dL 0.2-1.0 17 Sgot/Ast 12 U/L Low 15-37 17, 22 SGPT/Alt 18 U/L 12-78 17 Alkaline Phosphatase 95 U/L 45-117 17 Blood Culture 03/14/2017 Blood Culture Aerobic NO GROWTH: FINAL <SEE 17, 23 NOTE> Blood Culture Anaerobic NO GROWTH: FINAL <SEE NOTE> 17, 24 Lactic Acid 03/14/2017 Lactic Acid 0.8 mmol/L 0.4-1.9 17 Lab Reflex >2.0 for Sepsis? Y 17 Urinalysis With Microscopic 03/14/2017 Urine Color YELLOW Yellow 17 Urine Clarity CLEAR Clear 17 Urine Glucose - Dipstick NEGATIVE mg/dL Negative 17 Urine Bilirubin - Dipstick NEGATIVE Negative 17 Urine Ketone NEGATIVE mg/dL Negative 17 Urine Specific Stebbins 1.010 1.010-1.030 17 Urine Blood NEGATIVE Negative 17 Urine PH 6.0 Low 6.5-7.5 17 Urine Protein - Dipstick TRACE mg/dL Negative 17 Urine Urobilinogen - Dipstick 0.2 E.U./dL 0.2-1.0 17 Urine Nitrite - Dipstick NEGATIVE Negative 17 Urine Leuk Esterase MODERATE Negative 17 Urine RBC NONE SEEN rbc/hpf 0-2 17 Urine WBC 20-30 wbc/hpf High 0-7 17 Urine Epithelial Cells FEW /lpf None Seen 17 Urine Bacteria MODERATE None Seen 17 Source: URINE, CLEAN CAT <SEE 17, 25 NOTE> Blood Culture 03/14/2017 Blood Culture Aerobic NO GROWTH: FINAL <SEE 17, 26 NOTE> Blood Culture Anaerobic NO GROWTH: FINAL <SEE NOTE> 17, 27 CBS W/Automated Diff 03/14/2017 White Blood Count 10.0 K/uL 3.1-10.7 17 Red Blood Count 4.25 M/uL 3.90-5.40 17 Hemoglobin 13.6 gm/dL 11.6-15.8 17 Hematocrit 39.2 % 36.0-46.1 17 Mean Cell Volume 92.2 fl 80.9-99.0 17 Mean Corpuscular HGB 32.0 pg 25.9-32.7 17 Mean Corpuscular HGB Conc 34.7 g/dL High 30.8-34.3 17 Platelet Count 335 K/uL 150-400 17 Red Cell Distri Width SD 41.0 fl 3-47 17 Red Cell Distri Width %CV 12.5 % 11.7-14.4 17 Mean Platelet Volume 10.9 fL 8.9-12.4 17 Neut% 46.9 % 40.4-72.8 17 Lymph % 33.4 % 20.0-42.0 17 [place] % 11.1 % 4.3-13.2 17 Eo% 7.9 % High 0.0-6.6 17 Bas% 0.7 % 0.0-1.1 17 Neut# 4.67 K/uL 1.8-7.0 17 Lymph # 3.33 K/uL 1.0-4.0 17 [place] # 1.11 K/uL High 0.3-0.9 17 Eos # 0.79 K/uL High 0.0-0.5 17 Baso # 0.07 K/uL 0.0-0.1 17 Laboratory test 03/11/2017 Methylmalonic Acid (S) 0.17 umol/L 28, 29 finding Celiac Disease Panel 03/11/2017 Celikey (tTG) IgA Negative Negative 28 Celikey (tTG) IgG Negative Negative 28 deamidated Gliadin IgA Negative Negative 28 deamidated Gliadin IgG Negative Negative 28 Laboratory test finding 03/11/2017 Esr 26 mm/hr High 0-20 28 CRP (C-Reactive) 2.28 mg/dL High 0.00-0.75 28 Laboratory test finding 03/11/2017 Vit D25oh 42 ng/mL 31-100 28 Vitamin B12 984 pg/mL High 180-914 28 Uric Acid 4.7 mg/dL 2.6-7.6 28 Comprehensive Met Panel-[facility] 03/11/2017 Sodium 137 mmol/L 135-146 28, 30 Potassium 3.9 mmol/L 3.5-5.2 28 Chloride# 102 mmol/L 97-110 28, 31 Carbon Dioxide 25 mmol/L 24-34 28 Glucose 107 mg/dL High 70-105 28 BUN 20 mg/dL 6-26 28 Creatinine 1.1 mg/dL 0.5-1.4 28 Calcium 9.6 mg/dL 8.5-10.2 28 Total Protein 6.7 g/dL 6.0-8.0 28 Albumin 4.3 g/dL 3.6-4.9 28 Globulin 2.4 g/dL 2.0-3.5 28 A/G Ratio 1.8 Ratio 1.0-2.2 28 Total Bilirubin 0.4 mg/dL 0.1-1.3 28 Alkaline Phosphatase 102 U/L 24-140 28 Alt 20 U/L 3-42 28 Ast 15 U/L 8-42 28 Winter Egfr 58 Low >60 28, 32 Non Winter Egfr 48 Low >60 28, 33 Anion Gap 10 mmol/L 7-16 28, 34 CBC With Auto Diff 03/11/2017 WBC 14.2 K/uL High 4.1-11.0 28 RBC 4.62 M/uL 4.00-5.40 28 Hemoglobin 14.6 gm/dL 12.0-16.0 28 Hematocrit 43.5 % 36.0-47.0 28 MCV 94.1 fL 80.0-97.0 28 MCH 31.6 pg 27.0-32.0 28 MCHC 33.6 g/dL 32.0-36.0 28 RDW 12.8 % 11.5-14.5 28 PLT Count 344 K/ul 140-400 28 MPV 9.0 FL 7.1-10.7 28 Neutrophil 62.7 % 35.0-75.0 28 Lymphocyte 23.2 % 16.0-52.0 28 Monocyte 8.8 % 2.0-10.0 28 Eosinophil 4.8 % 0.0-5.0 28 Basophil 0.5 % 0.0-4.0 28 Abs Neutrophils 8.9 K/uL High 2.1-8.0 28 Abs Lymphocytes 3.3 K/uL 0.8-5.5 28 Abs Monocytes 1.2 K/uL High 0.1-1.0 28 Abs Eosinophils 0.7 K/uL High 0.0-0.5 28 Abs Basophils 0.1 K/uL 0.0-0.3 28 Lipid 03/11/2017 Cholesterol 235 mg/dL High 50-199 28 Triglycerides 323 mg/dL High 30-200 28 HDL 47 mg/dL 35-85 28, 35 Chol/ HDL Ratio 5.0 ratio 3.7-5.6 28 VLDL 65 mg/dL High 2-29 28 LDL (Calc) 124 mg/dL High 20-99 28, 36 Laboratory test 03/11/2017 Hepatitis C 0.13 NONREACTIVE Nonreactive 28, 37 finding Virus Antibody S/[facility] Laboratory test 02/07/2016 Vit D,25 34 ng/mL 31-100 38 finding Hydroxy Comprehensive 02/07/2016 Sodium 136 mmol/L 134-142 38 Metabolic (CMP) Potassium 4.6 mmol/L 3.5-5.2 38 Chloride 102 mmol/L 97-109 38 Carbon Dioxide 25 mmol/L 24-34 38 Glucose 84 mg/dL 70-105 38 BUN 16 mg/dL 6-26 38 Creatinine 1.1 mg/dL 0.5-1.4 38 Calcium 9.4 mg/dL 8.5-10.2 38 Total Protein 6.2 g/dL 6.0-8.0 38 Albumin 3.8 g/dL 3.6-4.9 38 Globulin 2.4 g/dL 2.0-3.5 38 A/G Ratio 1.6 Ratio 1.0-2.2 38 Total Bilirubin 0.4 mg/dL 0.1-1.3 38 Alkaline Phosphatase 83 U/L 24-140 38 Alt 14 U/L 3-42 38 Ast 16 U/L 8-42 38 Anion Gap 14 mmol/L 6-14 38 Winter Egfr >60 >60 38, 39 Non Winter Egfr 52 Low >60 38, 40 Microalb/Creat Panel 02/07/2016 Creatinine, Urine 67.9 mg/dL 38, 41 Microalbumin < 5.0 ug/ml 5.0-20.0 38 Lipid 02/07/2016 Cholesterol 233 mg/dL High 50-199 38 Triglycerides 375 mg/dL High 30-200 38 HDL 41 mg/dL 35-85 38, 42 Chol/ HDL Ratio 5.7 ratio High 3.7-5.6 38 VLDL 75 mg/dL High 2-29 38 LDL (Calc) 117 mg/dL High 20-99 38, 43 Laboratory test finding 02/07/2016 Vitamin B12 429 pg/mL 180-914 38 Uric Acid 5.6 mg/dL 2.6-7.6 38 CBC With Auto Diff 02/07/2016 WBC 10.0 K/uL 4.1-11.0 38 RBC 4.18 M/uL 4.00-5.40 38 Hemoglobin 13.2 gm/dL 12.0-16.0 38 Hematocrit 38.8 % 36.0-47.0 38 MCV 92.9 fL 80.0-97.0 38 MCH 31.6 pg 27.0-32.0 38 MCHC 34.1 g/dL 32.0-36.0 38 RDW 13.4 % 11.5-14.5 38 PLT Count 296 K/ul 140-400 38 Neutrophil 42.8 % 35.0-75.0 38 Lymphocyte 39.5 % 16.0-52.0 38 Monocyte 8.1 % 2.0-10.0 38 Eosinophil 7.1 % High 0.0-5.0 38 Basophil 2.5 % 0.0-4.0 38 Abs Neutrophils 4.3 K/uL 2.1-8.0 38 Abs Lymphocytes 3.9 K/uL 0.8-5.5 38 Abs Monocytes 0.8 K/uL 0.1-1.0 38 Abs Eosinophils 0.7 K/uL High 0.0-0.5 38 Abs Basophils 0.3 K/uL 0.0-0.3 38 Urine Microscopic 11/22/2015 Urine WBC * 6-10 [HPF] (0-5) Urine RBC NONE SEEN [HPF] (0-2) Bacteria 1+ [HPF] Laboratory test finding 11/22/2015 Urine Culture SPECIMEN DESCRI> 44 Basic (BMP) 10/03/2015 Sodium 137 mmol/L 134-142 45 Potassium 4.0 mmol/L 3.5-5.2 45 Chloride 104 mmol/L 97-109 45 Carbon Dioxide 28 mmol/L 24-34 45 Glucose 109 mg/dL High 70-105 45 BUN 16 mg/dL 6-26 45 Creatinine 0.9 mg/dL 0.5-1.4 45 Calcium 9.2 mg/dL 8.5-10.2 45 Anion Gap 9 mmol/L 6-14 45 Non Winter Egfr >60 >60 45, 46 Winter Egfr >60 >60 45, 47 Laboratory test finding 10/03/2015 Uric Acid 5.6 mg/dL 2.6-7.6 45 Lipid 08/11/2015 Cholesterol 210 mg/dL High 50-199 Triglycerides 195 mg/dL 30-200 HDL 42 mg/dL 35-85 48 Chol/ HDL Ratio 5.0 ratio 3.7-5.6 VLDL 39 mg/dL High 2-29 LDL (Calc) 129 mg/dL High 20-99 49 Laboratory test finding 08/11/2015 Uric Acid 7.7 mg/dL High 2.6-7.6 Laboratory test finding 08/11/2015 Magnesium 1.7 mg/dL 1.5-2.7 CBC With Auto Diff 08/11/2015 WBC 9.0 K/uL 4.1-11.0 RBC 4.56 M/uL 4.00-5.40 Hemoglobin 13.8 gm/dL 12.0-16.0 Hematocrit 41.5 % 36.0-47.0 MCV 91.2 fL 80.0-97.0 MCH 30.3 pg 27.0-32.0 MCHC 33.2 g/dL 32.0-36.0 RDW 12.9 % 11.5-14.5 PLT Count 312 K/ul 140-400 Neutrophil 37.2 % 35.0-75.0 Lymphocyte 48.6 % 16.0-52.0 Monocyte 7.3 % 2.0-10.0 Eosinophil 6.3 % High 0.0-5.0 Basophil 0.6 % 0.0-4.0 Abs Neutrophils 3.3 K/uL 2.1-8.0 Abs Lymphocytes 4.4 K/uL 0.8-5.5 Abmon 0.7 K/uL 0.1-1.0 Abs Eosinophils 0.6 K/uL High 0.0-0.5 Abs Basophils 0.1 K/uL 0.0-0.3 Comprehensive Metabolic (CMP) 08/11/2015 Sodium 139 mmol/L 134-142 Potassium 4.4 mmol/L 3.5-5.2 Chloride 104 mmol/L 97-109 Carbon Dioxide 28 mmol/L 24-34 Glucose 82 mg/dL 70-105 BUN 16 mg/dL 6-26 Creatinine 0.9 mg/dL 0.5-1.4 Calcium 9.4 mg/dL 8.5-10.2 Total Protein 6.2 g/dL 6.0-8.0 Albumin 3.9 g/dL 3.6-4.9 Globulin 2.3 g/dL 2.0-3.5 A/G Ratio 1.7 Ratio 1.0-2.2 Total Bilirubin 0.5 mg/dL 0.1-1.3 Alkaline Phosphatase 84 U/L 24-140 Alt 17 U/L 3-42 Ast 20 U/L 8-42 Anion Gap 11 mmol/L 6-14 Winter Egfr >60 >60 50 Non Winter Egfr 59 Low >60 51 Laboratory test finding 08/11/2015 Vitamin B12 831 pg/mL 180-914 Vit D,25 Hydroxy 23 ng/mL Low 31-100 TSH 2.97 uIU/mL 0.35-4.94 1 Note: Persistent reduction for 3 months or more in an eGFR <60 mL/min/1.73 m2 defines CKD. Patients with eGFR values >/=60 mL/min/1.73 m2 may also have CKD if evidence of persistent proteinuria is present. The original MDRD equation for estimated GFR is not valid for patients less than 18 years of age. Additional information may be found at [email or web address]. 2 NO DX 3 URINE, CLEAN CATCH 4 K50.90 5 C-DIFF TOXIN B: NEGATIVE 027 NAP1 B1: NEGATIVE NOTE: IF REFLEX CULTURE FOR KLEBSIELLA OXYTOCA IS CLINICALLY INDICATED, PLEASE CONTACT THE [facility] ([phone]) WITHIN 3 DAYS OF THIS REPORT Testing Performed by: [place] [address] 6 on cipro 7 SPECIMEN DESCRIPTION STOOL SPECIAL REQUESTS NONE RESULT NEGATIVE FOR ENTERIC PATHOGENS BY PCR. NOTE: THIS MOLECULAR ASSAY DETECTS THE FOLLOWING ENTERIC PATHOGENS: CAMPYLOBACTER GROUP (COLI, JEJUNI, ARMANDO), SALMONELLA SPECIES, SHIGELLA SPECIES (DYSENTERIAE, BOYDII, SONNEI, FLEXNERI), VIBRIO GROUP (CHOLERAE, PARAHAEMOLYTICUS), YERSINIA ENTEROCOLITICA, SHIGA TOXIN 1, SHIGA TOXIN 2, NOROVIRUS GROUP 1 AND 2, ROTAVIRUS A. REPORT STATUS FINAL 03/20/2017 Unless otherwise specified, testing performed by [facility] [place] [address] 8 SPECIMEN DESCRIPTION STOOL SPECIAL REQUESTS NONE RESULT NEGATIVE FOR GIARDIA BY DFA NEGATIVE FOR CRYPTOSPORIDIUM BY DFA STOOL SPECIMEN SCREENED FOR THE PRESENCE OF GIARDIA LAMBLIA AND CRYPTOSPORIDIUM PARVUM ONLY. FOR PATIENTS FROM OR WITH A HISTORY OF TRAVEL TO A DEVELOPING COUNTRY, OR WHO HAVE PERSISTANT SYMPTOMS AND/OR ARE IMMUNOCOMPROMISED, CALL MICROBIOLOGY TO REQUEST THE REFLEX TEST OAP FOR A COMPREHENSIVE MICROSCOPIC EXAMINATION. SPECIMENS ARE SAVED IN FIXATIVE AND HELD FOR 7 DAYS FROM THE REPORT DATE TO ALLOW THESE TESTS TO BE ADDED ON. REPORT STATUS FINAL 03/20/2017 Unless otherwise specified, testing performed by [facility] [place] [address] 9 PERFORMED AT [facility] [place] [id number] Unless otherwise specified, testing performed by [facility] [address] [place] [id number] 10 NOTE: IF REFLEX CULTURE FOR KLEBSIELLA OXYTOCA IS CLINICALLY INDICATED, PLEASE CONTACT THE MICROBIOLOGY LABORATORY ([phone]) WITHIN 3 DAYS OF THIS REPORT. Unless otherwise specified, testing performed by [facility] [address] [place] [id number] 11 today 12 Updated reference range on new analyzer 13 Updated reference range on new analyzer 14 Concerning GFR Guidelines for Americans: Normal function or mild renal disease, if clinically at risk: >/=60 mL/min Moderately decreased: 30-59 Severely decreased: 15-29 Renal failure: <15 15 Concerning GFR Guidelines: Normal function or mild renal disease, if clinically at risk: >/=60 mL/min Moderately decreased: 30-59 Severely decreased: 15-29 Renal failure: <15 Glomerular Filtration Rate (GFR) is estimated based on the MDRD equation, which assumes a steady state for creatinine as recommended by the National Kidney Disease Education Program in conjunction with the National Institutes of Health and the National Kidney Foundation. Clinical conditions in which it may be necessary to measure GFR by using clearance methods include extremes of age and body size, severe malnutrition or obesity, diseases of skeletal muscle, paraplegia or quadriplegia, vegetarian diet, rapidly changing kidney function, and calculation of the dose of potentially toxic drugs that are excreted by the kidneys. 16 Updated reference range on new analyzer 17 ABDOMINAL PAIN,FEVER,DIARRHEA,NAUSEA 18 ESCHERICHIA COLI 19 > 100,000 CFU/mL 20 Method: Quidel QuickVue One-Step Immunoassay 21 Note: Persistent reduction for 3 months or more in an eGFR <60 mL/min/1.73 m2 defines CKD. Patients with eGFR values >/=60 mL/min/1.73 m2 may also have CKD if evidence of persistent proteinuria is present. The original MDRD equation for estimated GFR is not valid for patients less than 18 years of age. Additional information may be found at www.kdoqi.org. 22 Values below the stated reference ranges of AST and ALT can be seen in normal populations. Clinical correlation is suggested. 23 NO GROWTH: FINAL REPORT 24 NO GROWTH: FINAL REPORT 25 URINE, CLEAN CATCH 26 NO GROWTH: FINAL REPORT 27 NO GROWTH: FINAL REPORT 28 today letter 29 Reference range: 0.00 to 0.40 INTERPRETIVE INFORMATION: MMA Serum/Plasma, Vitamin B12 Status Test developed and characteristics determined by [facility]. See Compliance Statement B: [facility] Performed by [facility], [address] [place] [address] [email or web address], Manuel Acosta MD, Lab. Director Unless otherwise specified, testing performed by [facility] [address] [place] [id number] 30 Updated reference range on new analyzer 31 Updated reference range on new analyzer 32 Concerning GFR Guidelines for Americans: Normal function or mild renal disease, if clinically at risk: >/=60 mL/min Moderately decreased: 30-59 Severely decreased: 15-29 Renal failure: <15 33 Concerning GFR Guidelines: Normal function or mild renal disease, if clinically at risk: >/=60 mL/min Moderately decreased: 30-59 Severely decreased: 15-29 Renal failure: <15 Glomerular Filtration Rate (GFR) is estimated based on the MDRD equation, which assumes a steady state for creatinine as recommended by the National Kidney Disease Education Program in conjunction with the National Institutes of Health and the National Kidney Foundation. Clinical conditions in which it may be necessary to measure GFR by using clearance methods include extremes of age and body size, severe malnutrition or obesity, diseases of skeletal muscle, paraplegia or quadriplegia, vegetarian diet, rapidly changing kidney function, and calculation of the dose of potentially toxic drugs that are excreted by the kidneys. 34 Updated reference range on new analyzer 35 Per NCEP ATP III Guidelines: Results lower than 40 mg/dL are suggestive of increased risk for coronary artery disease. Results > or=to 60 mg/dL are considered a negative risk factor. 36 Per NCEP ATP III Guidelines: Normal Population <130 Patients with medical conditions: CHD/DM Optimal: <100 Borderline high: 130-159 High: 160-189 Very high: >189 37 0.13 NONREACTIVE S/CO Ratio >/=1.0 is REACTIVE. S/CO <5.0 is Low Reactive. S/CO >/= 5.0 is High Reactive. Effective Jan 31, 2017 all anti-HCV reactive samples are sent for quantitative PCR confirmation. 38 b4 visit 02/2016 39 Concerning GFR Guidelines for Americans: Normal function or mild renal disease, if clinically at risk: >/=60 mL/min Moderately decreased: 30-59 Severely decreased: 15-29 Renal failure: <15 40 Concerning GFR Guidelines: Normal function or mild renal disease, if clinically at risk: >/=60 mL/min Moderately decreased: 30-59 Severely decreased: 15-29 Renal failure: <15 Glomerular Filtration Rate (GFR) is estimated based on the MDRD equation, which assumes a steady state for creatinine as recommended by the National Kidney Disease Education Program in conjunction with the National Institutes of Health and the National Kidney Foundation. Clinical conditions in which it may be necessary to measure GFR by using clearance methods include extremes of age and body size, severe malnutrition or obesity, diseases of skeletal muscle, paraplegia or quadriplegia, vegetarian diet, rapidly changing kidney function, and calculation of the dose of potentially toxic drugs that are excreted by the kidneys. 41 Unable to calculate ratio. Microalbumin <5.0 42 Per NCEP ATP III Guidelines: Results lower than 40 mg/dL are suggestive of increased risk for coronary artery disease. Results > or=to 60 mg/dL are considered a negative risk factor. 43 Per NCEP ATP III Guidelines: Normal Population <130 Patients with medical conditions: CHD/DM Optimal: <100 Borderline high: 130-159 High: 160-189 Very high: >189 44 SPECIMEN DESCRIPTION MIDSTREAM URINE,CLEAN CATCH CULTURE RESULTS >100,000 CFU/ML ESCHERICHIA COLI REPORT STATUS FINAL 11/24/2015 ORGANISM ESCHERICHIA COLI METHOD JOSE JUAN AMIKACIN <=2 SUSCEPTIBLE AMOXICILLIN/CLAVULANIC AC <=2/1 SUSCEPTIBLE AMPICILLIN 8 SUSCEPTIBLE ISOLATES SUSCEPTIBLE TO AMPICILLIN ARE ALSO SUSCEPTIBLE TO AMOXICILLIN. CEFAZOLIN <=4 SUSCEPTIBLE FOR UNCOMPLICATED UTI'S,CEFAZOLIN JOSE JUAN RESULTS LESS THAN OR EQUAL TO 16 MCG/ML PREDICT SUSCEPTIBILITY OF THE FOLLOWING ORAL CEPHALOSPORINS:CEFACLOR,CEFDINIR, CEFPODOXIME,CEFPROZIL,CEFUROXIME AND CEPHALEXIN. CEFEPIME <=1 SUSCEPTIBLE CEFOXITIN <=4 SUSCEPTIBLE CEFTAZIDIME <=1 SUSCEPTIBLE CEFTRIAXONE <=1 SUSCEPTIBLE CIPROFLOXACIN <=0.25 SUSCEPTIBLE GENTAMICIN <=1 SUSCEPTIBLE LEVOFLOXACIN <=0.12 SUSCEPTIBLE NITROFURANTOIN <=16 SUSCEPTIBLE PIPERACILLIN/TAZOBACTAM <=4 SUSCEPTIBLE TETRACYCLINE <=1 SUSCEPTIBLE TOBRAMYCIN <=1 SUSCEPTIBLE TRIMETH/SULFA <=1/19 SUSCEPTIBLE ERTAPENEM <=0.5 SUSCEPTIBL 45 in 1 m ov 46 Concerning GFR Guidelines: Normal function or mild renal disease, if clinically at risk: >/=60 mL/min Moderately decreased: 30-59 Severely decreased: 15-29 Renal failure: <15 Glomerular Filtration Rate (GFR) is estimated based on the MDRD equation, which assumes a steady state for creatinine as recommended by the National Kidney Disease Education Program in conjunction with the National Institutes of Health and the National Kidney Foundation. Clinical conditions in which it may be necessary to measure GFR by using clearance methods include extremes of age and body size, severe malnutrition or obesity, diseases of skeletal muscle, paraplegia or quadriplegia, vegetarian diet, rapidly changing kidney function, and calculation of the dose of potentially toxic drugs that are excreted by the kidneys. 47 Concerning GFR Guidelines for Americans: Normal function or mild renal disease, if clinically at risk: >/=60 mL/min Moderately decreased: 30-59 Severely decreased: 15-29 Renal failure: <15 48 Per NCEP ATP III Guidelines: Results lower than 40 mg/dL are suggestive of increased risk for coronary artery disease. Results > or=to 60 mg/dL are considered a negative risk factor. 49 Per NCEP ATP III Guidelines: Normal Population <130 Patients with medical conditions: CHD/DM Optimal: <100 Borderline high: 130-159 High: 160-189 Very high: >189 50 Concerning GFR Guidelines for Americans: Normal function or mild renal disease, if clinically at risk: >/=60 mL/min Moderately decreased: 30-59 Severely decreased: 15-29 Renal failure: <15 51 Concerning GFR Guidelines: Normal function or mild renal disease, if clinically at risk: >/=60 mL/min Moderately decreased: 30-59 Severely decreased: 15-29 Renal failure: <15 Glomerular Filtration Rate (GFR) is estimated based on the MDRD equation, which assumes a steady state for creatinine as recommended by the National Kidney Disease Education Program in conjunction with the National Institutes of Health and the National Kidney Foundation. Clinical conditions in which it may be necessary to measure GFR by using clearance methods include extremes of age and body size, severe malnutrition or obesity, diseases of skeletal muscle, paraplegia or quadriplegia, vegetarian diet, rapidly changing kidney function, and calculation of the dose of potentially toxic drugs that are excreted by the kidneys. Procedures Date CPT Code Description Status Comment 05/19/2017 98244 Measure Blood Oxygen Level Completed Single Determination 02/24/2017 Bone Mineral Density Test Completed 02/19/2017 65429 Bone Density Study (Dexa) Completed Axial Skeleton (Hips,Pelvis,Spine) 02/19/2017 Mammogram Completed Document: 02/19/17 - Digital Mammography Screening 06/12/2016 16281 Measure Blood Oxygen Level Completed Single Determination 10/11/2015 41156 Inject/Drain Joint/Bursa Completed Major 10/10/2015 27618 X-Ray Shoulder Complete Completed 08/09/2015 54198 X-Ray Foot Two Views Completed Bilateral 08/09/2015 36735 X-Ray Foot Ap & Lateral Completed 08/09/2015 34950 X-Ray Foot Ap & Lateral Completed 10/03/2014 Colonoscopy Completed Encounters Type Date Location Provider CPT E/M Dx Office Visit 04/02/2017 3:45p [facility] [place] [address] J02.9 R60.9 R94.4 Office Visit 03/18/2017 2:45p [facility] [place] [address] N30.01 R10.84 A09 K50.10 R94.4 R59.1 Office Visit 03/11/2017 2:30p [facility] Radha Whalen [place] G0439 K50.10 R05 I10 K21.9 Z00.00 E78.2 M10.9 M51.06 Z23 E53.9 E55.9 J30.9 G43.009 Z87.891 Z12.11 Z12.31 Z11.59 Z68.33 Office Visit 11/18/2016 3:15p [facility] [place] [address] L04.0 Office Visit 08/28/2016 3:00p [facility] Daljit, Nurses 51137 Z11.1 Office Visit 08/14/2016 3:00p [facility] [place] [address] R05 K21.9 I10 E78.2 K50.10 M10.9 M51.06 E53.9 E55.9 J30.9 G43.009 N95.1 Office Visit 06/12/2016 10:30a [facility] [place] [address] J06.9 R05 Office Visit 05/13/2016 3:15p [facility] [place] [address] R05 R49.0 Z87.891 K21.9 R10.31 Office Visit 04/19/2016 4:15p [facility] [place] [address] M54.6 Office Visit 02/14/2016 2:45p [facility] [place] [address] Z00.00 Z23 Z12.31 Z12.11 I10 E78.2 K50.10 M10.9 M51.06 E53.9 E55.9 Z68.33 K21.9 J30.9 G43.009 Z12.4 Office Visit 11/22/2015 4:15p [facility] [place] [address] N30.01 Z68.32 Office Visit 11/13/2015 1:00p [facility] [place] [address] I10 Z68.33 M51.06 Z12.31 Office Visit 10/10/2015 9:15a [facility] [place] [address] I10 M10.9 M72.2 H92.02 M25.511 Office Visit 09/18/2015 3:30p [facility] [place] [address] M72.2 Office Visit 09/07/2015 11:15a [facility] [address] M10.9 I10 E78.2 M15.0 E55.9 K21.9 E53.9 K50.10 M51.36 H92.02 J30.9 G43.009 Office Visit 08/14/2015 9:45a [facility] [address] M10.9 E55.9 M15.0 E78.2 Office Visit 08/11/2015 3:30p [facility] Daljit Nurses 39537 Z11.1 Office Visit 08/09/2015 1:30p [facility] [place] [address] Z11.1 I10 K50.10 K21.9 M51.36 Z68.31 E53.9 E55.9 H35.31 Z87.891 M79.673 Plan of Care Future Appointment(s):09/09/2017 2:30 pm - aRdha Whalen MD at [facility]12/2016 - Radha Whalen MDH92.03 Otalgia, bilateralComments:she has tenderness behind the ears with an otherwise normal examshe is concerned for enlarged lymphnodesrecommend referral to ENT, has seen Dr Méndez in [facility] may need MRI to evaluate for head and neck cancer given her concerns If develops steadily worsening hearing loss, headaches, fever 100.5, worsening severe pain, then call for reevaluation or try to see ENT sooner.Referral:Balaji Méndez MD, OtolaryngologyFollow up:to ENT within a weekR59.9 Enlarged lymph nodes, unspecifiedComments:pt feels soreness in the lymphnodes of neck and soreness in the axillary areaI do not feel these lymphnodes are significantly swollenthere can be many causes. referral to ENT
== END 2017-05-27 17:09 | disposition home or self-care (01) ==
LOC: UCCORT 15:30
DX: R21 Rash and other nonspecific skin eruption (principal)
CPT/HCPCS: 99212; G0463